=== PATIENT | female | born 1980 | race Caucasian/White ===

== ENCOUNTER 2018-12-25 11:30 | Outpatient (RCR) | payer BC | END 2018-12-31 | LOC: M PT 11:30 | PROVIDERS: ATTEND Physician Assistant Surgical | DX: M22.2X2 Patellofemoral disorders, left knee (principal) ==

== ENCOUNTER 2019-01-01 12:24 | Outpatient (RCR) | payer BC | END 2019-01-31 | LOC: M PT 12:24 | PROVIDERS: ATTEND Physician Assistant Surgical | DX: M22.2X2 Patellofemoral disorders, left knee (principal) ==

== ENCOUNTER 2019-04-13 11:58 | Outpatient (RCR) | payer BC | END 2019-05-02 | LOC: M PT 11:58 | PROVIDERS: ATTEND Orthopaedic Surgery | DX: S83.519D Sprain of anterior cruciate ligament of unspecified knee, subsequent encounter (principal); X58.XXXD Exposure to other specified factors, subsequent encounter ==

== ENCOUNTER → 2020-10-31 | Outpatient (CLI) | payer SELFPAY | LOC: M LABSMTC 10:45 | PROVIDERS: ATTEND Pediatrics | DX: Z20.828 Contact with and (suspected) exposure to other viral communicable diseases (principal) ==

== ENCOUNTER → 2021-10-05 | Outpatient (REF) | payer BC | LOC: M SFHCWAGY 17:00 | PROVIDERS: ATTEND Advanced Practice Midwife | DX: Z01.419 Encounter for gynecological examination (general) (routine) without abnormal findings (principal); Z12.4 Encounter for screening for malignant neoplasm of cervix; Z77.9 Other contact with and (suspected) exposures hazardous to health ==

== ENCOUNTER → 2021-10-09 | Outpatient (CLI) | payer BC ==
--- NOTE | 2021-10-09 13:21 | REP ---
INDICATION: ADENOMYOSIS OF UTERUS COMPARISON: 08/02/2016 TECHNIQUE: Transabdominal pelvic ultrasound followed by transvaginal examination for better evaluation of the endometrium and adnexa with color Doppler evaluation of the ovaries. FINDINGS: Bladder is unremarkable and measures 6.3 x 6.7 x 8.2 cm. Normal retroverted uterus measures 8.1 x 5.1 x 3.5 cm. The endometrial complex measures 10 mm thickness. Multiple nabothian cysts noted in the cervix. Bilateral ovaries are normal in appearance and vascularity without evidence for torsion. Right ovary measures 3.5 x 1.7 x 2.4 cm with 1.6 cm involuting physiologic cyst; R I = 0.50. Left ovary measures 2.6 x 1.4 x 1.9 cm; R I = 0.50. No pelvic fluid or adnexal mass lesion. IMPRESSION: 1. Nabothian cysts. 2. Involuting right ovarian cyst likely physiologic. <Electronically signed by Edi Hyde > 10/09/21 [id number]
== END ==
LOC: M WHC 12:06
PROVIDERS: ATTEND Advanced Practice Midwife
DX: N80.0 Endometriosis of uterus (principal); N94.6 Dysmenorrhea, unspecified

== ENCOUNTER → 2021-11-30 | Outpatient (CLI) | payer BC | LOC: M WHC 13:02 | PROVIDERS: ATTEND Advanced Practice Midwife | DX: Z12.31 Encounter for screening mammogram for malignant neoplasm of breast (principal) ==

== ENCOUNTER → 2021-12-25 | Outpatient (CLI) | payer BC | LOC: M WHC 11:10 | PROVIDERS: ATTEND Advanced Practice Midwife | DX: Z12.31 Encounter for screening mammogram for malignant neoplasm of breast (principal) ==

== ENCOUNTER → 2023-09-24 | Outpatient (REF) | payer BC | LOC: M SFHCWAGY 12:38 | PROVIDERS: ATTEND Nurse Practitioner Family | DX: N94.10 Unspecified dyspareunia (principal); Z12.4 Encounter for screening for malignant neoplasm of cervix | CPT/HCPCS: 87070; 87077; 87186; 87624; G0123 ==

== ENCOUNTER → 2023-09-24 | Outpatient (CLI) | payer BC | LOC: M WHC 09:22 | PROVIDERS: ATTEND Nurse Practitioner Family | DX: Z12.31 Encounter for screening mammogram for malignant neoplasm of breast (principal) ==

== ENCOUNTER → 2023-10-10 | Outpatient (REF) | LOC: M EMP 08:14 | PROVIDERS: ATTEND Family Medicine | DX: Z11.52 Encounter for screening for COVID-19 (principal) ==

== ENCOUNTER → 2024-09-29 | Outpatient (CLI) | payer BC | LOC: M WHC 09:32 | PROVIDERS: ATTEND Nurse Practitioner Family | DX: Z12.31 Encounter for screening mammogram for malignant neoplasm of breast (principal) ==

== ENCOUNTER → 2024-11-09 | Outpatient (CLI) | payer BC, OTHER | LOC: M WHC 08:30 | PROVIDERS: ATTEND Nurse Practitioner Family | DX: Z12.31 Encounter for screening mammogram for malignant neoplasm of breast (principal); N60.11 Diffuse cystic mastopathy of right breast; N60.12 Diffuse cystic mastopathy of left breast | CPT/HCPCS: 76642; 77065; G0279 ==

== ENCOUNTER → 2025-08-15 | Outpatient (CLI) | payer OTHER ==
[2025-08-15 10:00] LABS: PLATELET COUNT, AUTOMATED 390 10^3/uL (150-450)
[2025-08-15 10:25] LABS: ALT/SGPT 18.0 U/L (7.0-40); AST/SGOT 20.0 U/L (<34); CALCIUM LEVEL 8.8 MG/DL (8.5-10.1); CARBON DIOXIDE LEVEL 25.0 MMOL/L (20-31); CHLORIDE LEVEL 103.0 MMOL/L (98-107); CHOLESTEROL LEVEL 142.0 MG/DL (<200); CHOLESTEROL RISK RATIO 2.88 (<5); CREATININE FOR GFR 0.92 MG/DL (0.55-1.30); GLOMERULAR FILTRATION RATE 78.7 (>58); LDL CHOLESTEROL 72.2 MG/DL (<100); NON-HDL-C 92.8 MG/DL; POTASSIUM SERUM 4.4 MMOL/L (3.5-5.1); SODIUM LEVEL 138.0 MMOL/L (136-145); TRIGLYCERIDES LEVEL 103.0 MG/DL (<150)
== END ==
LOC: M LAB 07:47
PROVIDERS: ATTEND Physician Assistant
DX: E78.6 Lipoprotein deficiency (principal); K21.9 Gastro-esophageal reflux disease without esophagitis; R00.0 Tachycardia, unspecified

== ENCOUNTER → 2025-10-04 | Outpatient (CLI) | payer OTHER | LOC: M WHC 10:33 | PROVIDERS: ATTEND Nurse Practitioner Family | DX: Z12.31 Encounter for screening mammogram for malignant neoplasm of breast (principal); Z53.9 Procedure and treatment not carried out, unspecified reason ==

== ENCOUNTER → 2025-10-10 | Outpatient (CLI) | payer OTHER | LOC: M WHC 11:03 | PROVIDERS: ATTEND Nurse Practitioner Family | DX: Z12.31 Encounter for screening mammogram for malignant neoplasm of breast (principal); R92.333 Mammographic heterogeneous density, bilateral breasts ==